=== PATIENT | female | born 1950 | race Hispanic/Latino ===

== ENCOUNTER 2019-02-16 17:06 | Observation (INO) | payer SELFPAY ==
[2019-02-16] MEDS ORDERED: Aspirin Chewable 81 MG TAB ONE (17:53)
[2019-02-16 17:58] LABS: #Eosinphils 0.1 thou/uL (0.0-0.7); #Lymphocytes 2.3 thou/uL (1.20-3.40); #Monocytes 0.8 thou/uL (0.11-0.59); #Neutrophils 7.7 thou/uL (1.40-6.50); %Basophils 0.4 % (0.0-1.0); %Eosinophils 0.6 % (0.0-10.0); %Lymphocytes 21.2 % (21.0-51.0); %Monocytes 7.2 % (0.0-10.0); %Neutrophils 70.6 % (42.0-75.0); Hemoglobin 13.1 g/dL (12.0-16.0); Mean Corpuscular HGB CONC 32.2 g/dL (32.0-36.0); Mean Corpuscular Hemoglobin 29.1 pg (27.0-31.0); Mean Corpuscular Volume 90.3 fL (78.0-98.0); Mean Platelet Volume 7.1 fL (7.4-10.4); Platelet Count 352 thou/uL (130-400); RBC Distribution Width 12.5 % (11.5-14.5); Red Blood Cell (RBC) Count 4.52 mill/uL (4.20-5.40); White Blood Cell (WBC) Count 10.9 thou/uL (4.8-10.8)
[2019-02-16 18:06] LABS: PTT 29.9 SEC (22.9-36.1); Prothrombin Time 13.3 SEC (12.0-14.7)
[2019-02-16 18:20] LABS: ALT (SGPT) 16 U/L (8-55); AST (SGOT) 17 U/L (5-34); Albumin 3.9 g/dL (3.4-4.8); Alkaline Phosphatase 71 U/L (40-150); Anion Gap 10 mmol/L (10-20); BUN (Urea Nitrogen) 19 mg/dL (9.8-20.1); Bilirubin, Total 0.7 mg/dL (0.2-1.2); Calc. Creatinine Clearance 0 mL/min (70-130); Calcium 9.5 mg/dL (7.8-10.44); Carbon Dioxide 26 mmol/L (23-31); Chloride 102 mmol/L (98-107); Estimated GFR-MDRD 88; Glucose 134 mg/dL (80-115); Potassium 4.4 mmol/L (3.5-5.1); Protein, Total 6.9 g/dL (6.0-8.3); Sodium 134 mmol/L (136-145)
[2019-02-16] MEDS ORDERED: Acetaminophen 325 MG TAB PO PRN (20:40)
[2019-02-16] MEDS ORDERED: Ondansetron ODT 4 MG TAB SL PRN (20:40)
[2019-02-16] MEDS ORDERED: Ondansetron PF 4 MG/2 ML Vial IVP PRN (20:40)
[2019-02-16 20:41] VITALS: BMI 24.7
[2019-02-16] MEDS: Sodium Chloride 0.9% 1,000 ML IV SCH (21:25)
[2019-02-17] MEDS: Sodium Chloride 0.9% 1,000 ML IV SCH (04:16)
[2019-02-17] MEDS ORDERED: HumaLOG 300 UNITS/3 ML VIAL SC PRN ×2 (07:30)
[2019-02-17] MEDS ORDERED: Dextrose 5% in Water 1,000 ML IV PRN (07:30)
[2019-02-17] MEDS ORDERED: Dextrose 50% Abboject 50 ML SYRINGE SLOW IVP PRN (07:30)
[2019-02-17] MEDS: metFORMIN 500 MG TAB PO SCH ×2 (08:44→16:43)
[2019-02-17] MEDS ORDERED: Non-Formulary Item 1 EACH (Metformin Hcl [Metformin Hcl] 1,000 MG) PO SCH (09:00)
[2019-02-17] MEDS ORDERED: Non-Formulary Item 1 EACH (Lovastatin 20 MG) PO SCH (09:00)
[2019-02-17] MEDS ORDERED: Aspirin 81 mg Enteric Coated Tablet PO SCH (09:00)
[2019-02-17] MEDS ORDERED: Lisinopril/Hydrochlorothiazide 20 mg/12.5 mg Tablet PO SCH (09:00)
[2019-02-17] MEDS ORDERED: GLYBURIDE MICRONIZED 6 MG PO SCH (09:00)
[2019-02-17] MEDS ORDERED: Acetaminophen 325 MG TAB PO PRN (09:42)
--- NOTE | 2019-02-17 09:47 | ULT ---
FUltrasound carotid Doppler duplex: 02/17/2019 HISTORY: 68-year-old female with TIA TECHNIQUE: Grayscale, color-flow, and spectral analysis, of major arteries of neck. FINDINGS: Focal small to moderate size atheromatous plaque at right carotid bulb at origin of right internal ca rotid. Minimal, tiny plaque at origin of left internal carotid. Only the most proximal aspects of the bilateral internal carotid arteries can be accessed with Dopple r because of deep position of the bilateral internal carotids. Peak systolic velocities are 70 cm/s and 65 cm/s in the right and left internal carotids, respectivel y. The ICA/CCA ratios are 0.8 on the right and 0.9 on the left. Vertebral artery flow is antegrade bilaterally. IMPRESSION: 1. Only the most proximal aspect of the bilateral internal carotid arteries are visible because of de ep courses of those arteries. 2. No evidence of hemodynamically significant stenosis in the proximal bilateral internal carotids. 3. Small to moderate size atheromatous plaque at the origin of the right internal carotid.
[2019-02-17] MEDS ORDERED: Lorazepam 1 MG TAB PO SCH (12:00)
--- NOTE | 2019-02-17 13:00 | MRI ---
FBrain MRI without contrast: 02/17/2019 COMPARISON: None HISTORY: Generalized weakness, TIA TECHNIQUE: Multiplanar multisequence MR imaging of the brain obtained without contrast FINDINGS: The diffusion weighted imaging demonstrates no evidence for acute infarction. The axial gradient echo imaging demonstrates no evidence for intracranial hemorrhage. There are a few scattered foci of T2 and FLAIR hyperintensity within the deep white matter bilaterall y, suggesting minimal small vessel disease. No midline shift, mass effect, or ventricular enlargement . The paranasal sinuses/mastoid air cells are grossly unremarkable. Arterial flow voids at the axial le aaron of the skull base appear grossly unremarkable on the T2-weighted imaging. IMPRESSION: No evidence for acute infarction
[2019-02-17 15:40] VITALS: BP 106/54; TEMP 97.7
[2019-02-17] MEDS ORDERED: Simvastatin 5 MG TAB PO SCH (21:00)
[2019-02-17] MEDS ORDERED: Famotidine 20 MG TAB PO SCH (21:00)
[2019-02-18] MEDS ORDERED: Enoxaparin Sodium 40 MG/0.4 ML SYRINGE SC SCH (09:00)
== END 2019-02-17 17:10 | disposition home or self-care (01) ==
LOC: ERS 17:06 → 2SE 20:24
PROVIDERS: ADMIT Family Medicine; ATTEND Family Medicine
DX: G45.9 Transient cerebral ischemic attack, unspecified (principal); E11.9 Type 2 diabetes mellitus without complications; E78.5 Hyperlipidemia, unspecified; E78.00 Pure hypercholesterolemia, unspecified; I10 Essential (primary) hypertension; Z79.84 Long term (current) use of oral hypoglycemic drugs; Z79.899 Other long term (current) drug therapy
CPT/HCPCS: 36415; 36416; 70551; 80053; 85025; 85610; 85730; 93306; 93880; 96360; 96361; 99285; G0378

== ENCOUNTER 2022-06-28 10:12 | Outpatient (CLI) | payer MEDICARE | END 2022-06-28 10:13 | disposition home or self-care (01) | LOC: BICMAMMO 10:12 | PROVIDERS: ATTEND Family Medicine | DX: Z12.31 Encounter for screening mammogram for malignant neoplasm of breast (principal); Z13.820 Encounter for screening for osteoporosis; M81.0 Age-related osteoporosis without current pathological fracture | CPT/HCPCS: 77063; 77067; 77080 ==

== ENCOUNTER 2023-08-23 15:02 | Outpatient (CLI) | payer MEDICARE | END 2023-08-23 15:03 | disposition home or self-care (01) | LOC: BICMAMMO 15:02 | PROVIDERS: ATTEND Family Medicine | DX: Z12.31 Encounter for screening mammogram for malignant neoplasm of breast (principal); Z13.820 Encounter for screening for osteoporosis; M85.88 Other specified disorders of bone density and structure, other site | CPT/HCPCS: 77063; 77067; 77080 ==

== ENCOUNTER 2024-08-24 11:54 | Outpatient (CLI) | payer MEDICARE | END 2024-08-24 11:55 | disposition home or self-care (01) | LOC: BICMAMMO 11:54 | PROVIDERS: ATTEND Family Medicine | DX: Z12.31 Encounter for screening mammogram for malignant neoplasm of breast (principal) | CPT/HCPCS: 77063; 77067 ==